=== PATIENT | male | born 1990 | race Caucasian/White ===

== ENCOUNTER 2021-06-25 12:39 | Emergency (ER) | payer OTHER ==
[~2021-06-25] VITALS: Ht 180.3 cm; Wt 72.6 kg
[2021-06-25 13:14] LABS: URINE BILIRUBIN NEGATIVE (Negative); URINE BLOOD 3+ (Negative); URINE CLARITY CLEAR; URINE COLOR YELLOW; URINE GLUCOSE-RANDOM NEGATIVE (Negative); URINE KETONES TRACE (Negative); URINE LEUKOCYTES-REFLEX NEGATIVE (Negative); URINE NITRITE-REFLEX NEGATIVE (Negative); URINE PROTEIN NEGATIVE (Negative); URINE SPECIFIC GRAVITY 1.025 (1.005-1.030); URINE UROBILINOGEN 0.2 E.U./dl (0.2-1.0)
[2021-06-25 13:30] LABS: BACTERIA-REFLEX 1-9 Few /HPF (None Seen); CASTS None Seen /LPF (None Seen); CRYSTALS None Seen /LPF (None Seen); MUCUS 4-6 Moderate strn/LPF (None Seen); SQUAMOUS NONE SEEN /LPF (0-3); URINE WBC-REFLEX None Seen /HPF (0-5)
[2021-06-25 13:53] LABS: ABSOLUTE BASOPHILS 0.1 thou/uL (0.0-0.2); ABSOLUTE MONOCYTES 1.4 thou/uL (0.0-1.2); ABSOLUTE NEUTROPHILS 13.7 thou/uL (1.6-8.1); BASOPHILS 0.6 %; EOSINOPHILS 0.2 %; HEMATOCRIT 43.3 % (42.0-52.0); LYMPHOCYTES 20.9 %; MCHC 34.6 g/dL (28.0-37.0); MCV 89.7 fL (80.0-100.0); MONOCYTES 7.5 %; MPV 8.5 fl. (7.2-11.1); NUCLEATED RBCS 0 /100WBC; PLATELET COUNT* 309 thou/uL (150-400); POLYS 70.8 %; RBC 4.83 mil/uL (4.50-6.00); RDW-CV 12.1 % (10.5-14.5); WBC 19.3 thou/uL (4.0-11.0)
[2021-06-25 14:05] LABS: CALCIUM 8.8 mg/dL (8.5-10.1); CREATININE 1.1 mg/dL (0.6-1.3); POTASSIUM 3.4 mmol/L (3.5-5.1)
[2021-06-25 14:10] LABS: ALBUMIN 3.9 g/dL (3.4-5.0); TOTAL BILIRUBIN 0.3 mg/dL (<0.1-1.0)
[2021-06-25] MEDS ORDERED: ZOFRAN ODT4 MG DISSOLVE ×2 (14:18→18:51)
[2021-06-25] MEDS ORDERED: CIPRO500 M1 PO ×2 (14:18→18:51)
[2021-06-25] MEDS ORDERED: FLOMAX0.4 MG PO ×2 (14:18→18:51)
[2021-06-25] MEDS ORDERED: PERCOCET PO ×2 (14:18→18:51)
[2021-06-25 14:55] VITALS: BP 145/85
== END 2021-06-25 14:56 | disposition home or self-care (01) ==
LOC: M.ERS 12:39
PROVIDERS: Family Medicine
DX: N20.0 Calculus of kidney (principal); Z88.0 Allergy status to penicillin